=== PATIENT | male | born 1990 | race Caucasian/White ===

== ENCOUNTER 2025-02-11 07:20 | Outpatient (CLI) | payer OTHER, SELFPAY | END 2025-02-11 07:21 | disposition home or self-care (01) | LOC: NFLDREF 02-13 22:54 | PROVIDERS: PCP Family Medicine; Referring Provider Family Medicine; Visit Provider Family Medicine | DX: N46.8 Other male infertility (principal); Z98.890 Other specified postprocedural states | CPT/HCPCS: 89322 ==

== ENCOUNTER 2025-05-21 15:35 | Outpatient (CLI) | payer OTHER, SELFPAY | END 2025-05-21 15:36 | disposition home or self-care (01) | LOC: NFLDREF 05-27 15:35 | PROVIDERS: PCP Family Medicine; Referring Provider Family Medicine; Visit Provider Family Medicine | DX: Z11.3 Encounter for screening for infections with a predominantly sexual mode of transmission (principal) | CPT/HCPCS: 86703; 87491; 87591 ==